=== PATIENT | female | born 1985 | race African-American/Black ===

== ENCOUNTER 2021-11-13 09:49 | Emergency (ER) | payer OTHER, SELFPAY ==
--- NOTE | ~2021-11-13 | XR_ITS ---
EXAMINATION: XR FOREARM, LEFT CLINICAL INFORMATION: Cut with carlos. COMPARISON: None TECHNIQUE: AP and lateral views of the left forearm were obtained. FINDINGS: There is no acute fracture or dislocation. The radius and ulna are intact. The soft tissues show mild swelling distally with subcutaneous fullness adjacent to the distal ulna. No radiopaque foreign body. XR/XR forearm LT 2V IMPRESSION: Soft tissue fullness distally in the forearm adjacent to the ulna is presumed to represent the patient's wound without radiopaque foreign body. No acute underlying osseous abnormality.
[2021-11-13 09:51] VITALS: PULSE 88; RESP 20; O2SAT 98; BMI 31.1
--- NOTE | 2021-11-13 10:04 | ED.WOUNDLAC ---
HPI - Wound/Laceration General Chief Complaint: Wound/Laceration Stated Complaint: laceration l arm loss a lot of blood Time Seen by Provider: 11/13/21 10:02 Source: patient Mode of arrival: ambulatory Limitations: no limitations History of Present Illness HPI narrative: 36 y/o female presents to the ER with a deep laceration to her left distal forearm that she accidentally sustained when she was putting new camping gear away and cut herself with a machete a couple of hours ago. The machete was new and never used. She reports significant amount of bleeding that was controlled with direct pressure. She has full function of the hand and digits but reports severe shooting pain into the pinky finger with any movement or palpation of the wound. She is right hand dominant. Unsure of last tdap. Onset (ago): hour(s) (2) Extremity Location: left: forearm (distal palmar side) Place: home Patient tetanus UTD: No Context: accidental Associated symptoms: pain Treatments prior to arrival: bandage Related Data Previous Rx's Medication Instructions Recorded hydrocodone 5 mg-acetaminophen 325 1 tab PO Q8H PRN #5 tab 11/13/21 mg tablet ibuprofen 600 mg tablet 600 mg PO Q8H PRN #6 tab 11/13/21 Allergies Allergy/AdvReac Type Severity Reaction Status Date / Time amoxicillin [AMOXICILLIN] Allergy Unknown SWELLING Unverified 04/02/20 19:41 latex [LATEX] Allergy Unknown SWELLING Unverified 04/02/20 19:41 Review of Systems Review of Systems: Constitutional: No Fever, No Chills Cardiovascular: No Chest Pain, No SOB Gastrointestinal: Nausea, No Vomiting Musculoskeletal: + joint pain, + Myalgias Skin: + Skin Lesions, No rash Neuro: No Weakness, No Numbness, No Dizziness Psych: + Anxiety/Panic Heme/Lymph: No Bruising, No Lymphadenopathy PMFSH Social History Social History Advance Directives: No Advance Directives Information Provided: No Patient : No Physical Exam Vital Signs: Vital Signs: Last Vital Signs Pulse 88 11/13/21 09:51 Resp 17 11/13/21 11:00 Pulse Ox 98 11/13/21 09:51 BMI result Body Mass Index 31.1 Appearance: Alert. Oriented X3. Crying in pain HEENT: normal inspection CVS: Normal heart rate and rhythm. Pulses normal. Respiratory: No respiratory distress. Skin: Skin warm and dry. Normal skin color. Normal skin turgor. No rashes. Extremities: palmar aspect of left distal forearm with a deep irregular shaped deep wound with exposed adipose tissue, deep structures intact, no visible tendon. significant tenderness throughout the entire area. left hand with full mobility and ROM of the wrist and digits but with weak hand grasp due to pain. 2+ radial pulse and <3 sec cap refill Neuro: Oriented X 3. No motor deficit. No sensory deficit. Course Course Course Narrative: 28-year-old female presenting to the ER with a deep laceration to her left distal forearm sustained a few hours ago with a machete. Wound is clean does not appear to be contaminated, knife was new. No active bleeding on arrival. Tdap given. X-rays ordered to rule out bony involvement. He does not seem to have tendon involvement. Will plan to irrigate the wound extensively and repair with absorbable sutures and simple interrupted sutures to approximate wound margins as able. Reevaluation(s) Reevaluation #1: X-rays negative for any bony involvement, there is some soft tissue swelling around the area of the wound which is to be expected. Patient tolerated suturing well, 12 external sutures and 1 internal of the verbal suture. Patient advised and counseled on wound care as well as signs and symptoms of infection. She is encourage follow-up with Dr. Hartman for follow-up given her ongoing complaint of shooting pain into the left pinky. Stable for discharge home with pain control and supportive care. Procedures Laceration Laceration 1: Site: upper extremity Side (If applicable): left Size (cm): 8 Description: flap and irregular Depth: involves muscle layer (Involved subcutaneous fat where) Local Anesthetic: lidocaine 1% and with epi Amount of anesthesia used (mL): 7 Pre-repair: wound explored, irrigated extensively and deep structures intact Skin layer closed with: nylon Size (cm): 4-0 Number of sutures: 12 Technique: simple, interrupted Subcutaneous layer closed with: chromic gut Size: 3-0 Number of sutures: 1 Technique: simple, interrupted Critical Care Time Critical Care Time Critical Care Time: No Discharge Plan Discharge Clinical Impression: Laceration Patient Disposition: Home, Self-Care Instructions: Laceration (DC) Additional Instructions: You will need your stitches out in 10 days. See you doctor for this or come back to the ER and we will remove them. Do not get wet for 24 hours, after that you can briefly wash with soap and water then pat dry. Use bacitracin 2x per day. Keep wound clean and covered. Use ice several times per day and elevate above the level of your heart. Take the prescribed medications as needed for pain. Do not submerge in water, no swimming. Recommend following up with your hand specialist given the shooting pain into your hand - name and number below. If you develop signs of infection including increased pain, swelling, redness or drainage of pus come back to the ER for further evaluation. Prescriptions: New ibuprofen 600 mg tablet 600 mg PO Q8H PRN (Reason: pain) Qty: 6 0RF hydrocodone-acetaminophen 5-325 mg tablet 1 tab PO Q8H PRN (Reason: severe pain (scale score 7-10)) Qty: 5 0RF Referrals: Ienz Hartman MD [Physician] - 1 week (left forearm lac w/ shooting pain into the hand) Stand Alone Forms: Work/School Release Interventions: ED Discharge Assessment Last Done: 11/13/21 11:43 Discharge Date/Time: 11/13/21 11:44
[2021-11-13] MEDS: oxyCODONE HCl Immed Release 5 MG TABLET PO (10:11)
[2021-11-13] MEDS: Diphth,Pertus(ACell),Tet Adult 0.5 ML SYRINGE IM (10:12)
[2021-11-13 11:00] VITALS: RESP 17
== END 2021-11-13 11:44 | disposition home or self-care (01) ==
PROVIDERS: Emergency Provider Emergency Medicine; PCP Physician Assistant Medical
DX: S51.812A Laceration without foreign body of left forearm, initial encounter (principal); W26.0XXA Contact with knife, initial encounter; Y93.9 Activity, unspecified; Y92.009 Unspecified place in unspecified non-institutional (private) residence as the place of occurrence of the external cause; Y99.9 Unspecified external cause status
CPT/HCPCS: 12034; 73090; 90471; 90715; 99284

== ENCOUNTER 2021-11-14 11:38 | Emergency (ER) | payer OTHER, SELFPAY ==
[2021-11-14 11:51] VITALS: BP 128/89; PULSE 70; RESP 18; TEMP 36.7; O2SAT 98; BMI 31.1
--- NOTE | 2021-11-14 12:31 | ED.WOUNDLAC ---
HPI - Wound/Laceration General Chief Complaint: Wound/Laceration Stated Complaint: wound pain Time Seen by Provider: 11/14/21 12:31 Source: patient Mode of arrival: ambulatory Limitations: no limitations History of Present Illness HPI narrative: 36 y/o female presenting back to the ER with ongoing left laceration and hand pain after she was seen yesterday for a laceration from a machete requiring 13 sutures to repair. She reports shooting pain from the laceration into the left hand, mostly into the pinky. Pain is worse with movement of the hand and wrist and with palpation. She reports taking all of the pain medications she was prescribed yesterday, they made her tired but really didnt help with the pain. She was not able to sleep last night because the pain kept her up. Onset (ago): day(s) (1) Extremity Location: left: forearm, wrist and hand Place: home Patient tetanus UTD: Yes Context: accidental Associated symptoms: pain Treatments prior to arrival: bandage and NSAIDS Related Data Previous Rx's Medication Instructions Recorded hydrocodone 5 mg-acetaminophen 325 1 tab PO Q8H PRN #5 tab 11/13/21 mg tablet ibuprofen 600 mg tablet 600 mg PO Q8H PRN #6 tab 11/13/21 acetaminophen 650 mg 650 mg PO Q8H PRN #30 tab 11/14/21 tablet,extended release (Tylenol Arthritis Pain) ibuprofen 600 mg tablet 600 mg PO Q8H PRN #30 tab 11/14/21 oxycodone 5 mg tablet 5 mg PO Q6H PRN #8 tab 11/14/21 Allergies Allergy/AdvReac Type Severity Reaction Status Date / Time amoxicillin [AMOXICILLIN] Allergy Unknown SWELLING Verified 11/14/21 11:54 latex [LATEX] Allergy Unknown SWELLING Verified 11/14/21 11:54 Review of Systems Review of Systems: Constitutional: No Fever, No Chills Cardiovascular: No Chest Pain, No SOB Respiratory: No Cough, No Sputum Gastrointestinal: No Nausea, No Vomiting Musculoskeletal: + joint pain, + Myalgias Skin: + Skin Lesions, No rash Neuro: + Weakness, No Numbness, No Dizziness Psych: + Anxiety/Panic, No Depression Heme/Lymph: No Bruising, No Lymphadenopathy PMFSH Past Medical History Medical History (Updated 11/14/21 @ 13:29 by YUSUF Jason) No known health problems Social History Social History Advance Directives: No Advance Directives Information Provided: No Patient : No Physical Exam Vital Signs: Vital Signs: Last Vital Signs Temp 98.1 F 11/14/21 11:51 Pulse 70 11/14/21 11:51 Resp 18 11/14/21 11:51 BP 128/89 11/14/21 11:51 Pulse Ox 98 11/14/21 11:51 BMI result Body Mass Index 31.1 Appearance: Alert. Oriented X3. No acute distress. HEENT: normal inspection CVS: Normal heart rate and rhythm. Pulses normal. Respiratory: No respiratory distress. Skin: Skin warm and dry. Normal skin color. Normal skin turgor. No rashes. Extremities: left dorsal forearm with a wound to the distal aspect, sutures intact. no erythema, warmth or drainage. tenderness of the wound itself. weak left hand grasp due to pain but full ROM of the wrist and all digits. weakness of adduction of digits 2-3, other adduction intact. cap refill <3 sec. 2+ radial pulse. No sensory deficits. tenderness of the proximal left forearm with pain reported in the hand, compartment is soft and compressible without any evidence of compartment syndrome or hematoma. Neuro: Oriented X 3. No motor deficit. No sensory deficit. Course Course Course Narrative: 36 y/o female presents to the ER for re-evaluation of left hand and laceration pain s/p machete injury yesterday morning. She reports shooting type pain into the pinky, consistent with possible nerve injury. She has normal ROM with some weakness of finger adduction (digits 2-3) and weakness with her grasp due to pain. NV intact on exam. Case was d/w Katiana HALL from Orthopedics - recommending close follow up in the office by Dr. Hartman on Monday. Plan d/w patient and she is stable for d/c with additional medications for pain and Hand follow up. Discharge Plan Discharge Clinical Impression: Left wrist pain Patient Disposition: Home, Self-Care Instructions: Wrist Injury (ED), Arm Pain (ED) Additional Instructions: Recommend following up with Dr. Hartman on Monday - name and number below. Call the office and tell them you were in the ER and you are supposed to be seen in the office on Monday. Continue to elevate and ice your arm. Take the prescribed medications as needed for pain. Prescriptions: New oxycodone 5 mg tablet 5 mg PO Q6H PRN (Reason: pain (scale score 7-10)) Qty: 8 0RF ibuprofen 600 mg tablet 600 mg PO Q8H PRN (Reason: pain) Qty: 30 0RF acetaminophen [Tylenol Arthritis Pain] 650 mg tablet extended release 650 mg PO Q8H PRN (Reason: pain) Qty: 30 0RF No Action ibuprofen 600 mg tablet 600 mg PO Q8H PRN (Reason: pain) Qty: 6 0RF hydrocodone-acetaminophen 5-325 mg tablet 1 tab PO Q8H PRN (Reason: severe pain (scale score 7-10)) Qty: 5 0RF
[2021-11-14] MEDS: Ketorolac Tromethamine 30 MG/ML VIAL IM (13:09)
[2021-11-14] MEDS: HYDROcodone Bit/Acetam 5/325 TABLET 1 TAB PO (13:10)
[2021-11-14] MEDS: Lidocaine 4 % Cream KIT 1 APPL TOPICAL (13:47)
[2021-11-14 13:55] VITALS: RESP 18
== END 2021-11-14 13:55 | disposition home or self-care (01) ==
PROVIDERS: Emergency Provider Emergency Medicine; PCP Physician Assistant Medical
DX: M25.532 Pain in left wrist (principal); S51.812D Laceration without foreign body of left forearm, subsequent encounter; W26.0XXD Contact with knife, subsequent encounter
CPT/HCPCS: 96372; 99284; J1885

== ENCOUNTER → 2021-11-16 12:38 | Outpatient (BNVA) | payer OTHER, SELFPAY | PROVIDERS: PCP Physician Assistant Medical; Visit Provider Orthopaedic Surgery | DX: S51.812A Laceration without foreign body of left forearm, initial encounter (principal) | CPT/HCPCS: 99202 ==

== ENCOUNTER 2021-11-24 08:29 | Emergency (ER) | payer OTHER, SELFPAY ==
[2021-11-24 08:34] VITALS: BP 138/102; PULSE 80; RESP 16; TEMP 36.4; O2SAT 98; BMI 31.1
--- NOTE | 2021-11-24 10:03 | ED.RECABL ---
HPI - Recheck/Abnormal Lab/Rx General Chief Complaint: Wound/Laceration Stated Complaint: wound check Time Seen by Provider: 11/24/21 08:59 Source: patient Mode of arrival: ambulatory Limitations: no limitations History of Present Illness HPI narrative: 36-year-old female presenting to the ED with complaints of worsening pain/redness/swelling/mild purulent discharge that she noticed since yesterday from her left wrist laceration where she was seen here on 11/13/2021 and had 11 stitches placed and given ibuprofen and [place] and she did not have any symptomatic relief to that therefore she came back for further evaluation treatment on 11/14/2021 due to severe pain was given oxycodone/ibuprofen and Tylenol. Then patient was seen on 11/16/2021 by Orthopedics and sent home after they reported she had a normal exam. She denies any fevers, chills, history of MRSA or any other symptoms complaints or concerns at this time. MD complaint: wound re-check and suture/staple removal Initial visit (ago): day(s) () Initial visit for: laceration Returns today for: staple/stitch removal and wound recheck Symptoms since prior visit: worsening pain, worsening swelling, worsening redness and worsening discharge Associated symptoms: none Related Data Previous Rx's Medication Instructions Recorded hydrocodone 5 mg-acetaminophen 325 1 tab PO Q8H PRN #5 tab 11/13/21 mg tablet ibuprofen 600 mg tablet 600 mg PO Q8H PRN #6 tab 11/13/21 acetaminophen 650 mg 650 mg PO Q8H PRN #30 tab 11/14/21 tablet,extended release (Tylenol Arthritis Pain) ibuprofen 600 mg tablet 600 mg PO Q8H PRN #30 tab 11/14/21 oxycodone 5 mg tablet 5 mg PO Q6H PRN #8 tab 11/14/21 acetaminophen 500 mg tablet 1,000 mg PO QID PRN #14 tab 11/24/21 (Tylenol Extra Strength) cephalexin 500 mg capsule 500 mg PO Q6H 10 Days #40 cap 11/24/21 doxycycline hyclate 100 mg tablet 100 mg PO BID 10 Days #20 tab 11/24/21 ibuprofen 800 mg tablet 800 mg PO Q8H PRN #14 tab 11/24/21 oxycodone 5 mg tablet 5 mg PO Q6H PRN #14 tab 11/24/21 Allergies Allergy/AdvReac Type Severity Reaction Status Date / Time amoxicillin [AMOXICILLIN] Allergy Unknown SWELLING Verified 11/16/21 13:50 latex [LATEX] Allergy Unknown SWELLING Verified 11/16/21 13:50 Review of Systems Review of Systems: Constitutional : No Fever, No Chills, Cardiovascular : No Chest Pain, No SOB Respiratory : No Dyspnea Gastrointestinal : No abdominal pain Musculoskeletal : No Joint Swelling Skin : positive skin wound/laceration with mild surrounding erythema and significant pain with mild purulent discharge noted, No Foreign bodies, No rash Neuro : No Weakness, No Numbness/tingling Psych : No SI/HI/thoughts of self injury Yes all other systems are reviewed and are negative [facility] Past Medical History Attestation statement: The following information was validated with the patient. Medical History No known health problems Social History Social History Patient Tobacco Use Status: Never used Tobacco Advance Directives: No Advance Directives Information Provided: No Current occupational status: unemployed Current occupation: rt hand Physical Exam Vital Signs: Vital Signs: Last Vital Signs Temp 97.5 F 11/24/21 08:34 Pulse 80 11/24/21 08:34 Resp 16 11/24/21 08:34 BP 138/102 H 11/24/21 08:34 Pulse Ox 98 11/24/21 08:34 BMI result Body Mass Index 31.1 vital signs have been reviewed as normal and appeared to be correct. Blood pressure 138/102 Heart rate normal. Respiration rate normal. Temperature normal. Oxygen saturation normal. Appearance: Alert. Oriented X3. No acute distress. Head: Normal external exam. Normocephalic. Atraumatic. Eyes: PERRLA. EOMI. Conjunctiva and sclera normal. Eyelids normal. ENT: Pharynx normal. Uvula midline. Moist mucous membranes. Neck: Normal inspection. Neck supple. FROM. CVS: Normal heart rate and rhythm. Respiratory: No respiratory distress. Painless inspiration. Skin: Skin warm and dry. Normal skin color. Normal skin turgor. To the left forearm patient has a healing lacerations chest wound with [address] with mild surrounding erythema/warm to touch/moderate tenderness palpation and mild purulent drainage. Otherwise no streaking noted. No additional rashes/lesions/lacerations noted. Extremities: No lower extremity edema. Extremities exhibit normal range of motion. Extremities nontender. Neuro: Oriented X 3. No motor deficit. No sensory deficit. Reflexes normal. Normal steady gait. No focal neuro deficits noted. Vascular: + radial pulses/+ 2 distal pedal pulses/+2 dorsalis pedis b/l. Normal cap refill. No cyanosis noted to upper extremity nails and lower extremity toes nails. Course Course Course Narrative: Patient now status post suture removal 11 sutures removed mild dehiscence with surrounding erythema although no additional purulent drainage once I removed all the stitches. Patient tolerated procedure well although was in severe pain therefore she was medicated with Toradol and oxycodone. Then I placed Steri-Strips due to dehiscence. No labs or imaging indicated at this time. Will DC home with symptomatic treatment and antibiotics for 10 days and instructions return in 2-3 days for wound check/cellulitis check and to follow-up with primary care provider. Patient understands agrees with this plan. MDM - Recheck/Abnormal Lab/Rx Medical Records Attestation: I reviewed the patient's medical records. Discharge Plan Discharge Clinical Impression: Infected laceration, Cellulitis of arm, Visit for suture removal Patient Disposition: Home, Self-Care Instructions: Cellulitis (ED) Prescriptions: New cephalexin 500 mg capsule 500 mg PO Q6H 10 Days Qty: 40 0RF doxycycline hyclate 100 mg tablet 100 mg PO BID 10 Days Qty: 20 0RF oxycodone 5 mg tablet 5 mg PO Q6H PRN (Reason: pain) Qty: 14 0RF ibuprofen 800 mg tablet 800 mg PO Q8H PRN (Reason: pain) Qty: 14 0RF acetaminophen [Tylenol Extra Strength] 500 mg tablet 1,000 mg PO QID PRN (Reason: fever or pain) Qty: 14 0RF No Action ibuprofen 600 mg tablet 600 mg PO Q8H PRN (Reason: pain) Qty: 6 0RF hydrocodone-acetaminophen 5-325 mg tablet 1 tab PO Q8H PRN (Reason: severe pain (scale score 7-10)) Qty: 5 0RF oxycodone 5 mg tablet 5 mg PO Q6H PRN (Reason: pain (scale score 7-10)) Qty: 8 0RF ibuprofen 600 mg tablet 600 mg PO Q8H PRN (Reason: pain) Qty: 30 0RF acetaminophen [Tylenol Arthritis Pain] 650 mg tablet extended release 650 mg PO Q8H PRN (Reason: pain) Qty: 30 0RF Referrals: Yayo Macedo PA [Primary Care Provider] - 2 days Jaclyn Ceballos PA [Emergency Midlevel Provider] - 2 days (For wound check/cellulitis check) Stand Alone Forms: Work/School Release Interventions: ED Discharge Assessment Last Done: 11/24/21 10:19 Discharge Date/Time: 11/24/21 10:19
[2021-11-24] MEDS: oxyCODONE HCl Immed Release 5 MG TABLET PO (10:10)
[2021-11-24] MEDS: Ketorolac Tromethamine 60 MG/2 ML VIAL IM (10:10)
== END 2021-11-24 10:19 | disposition home or self-care (01) ==
PROVIDERS: Emergency Provider Emergency Medicine; PCP Physician Assistant Medical
DX: L03.114 Cellulitis of left upper limb (principal); M25.532 Pain in left wrist; Z79.899 Other long term (current) drug therapy; Z48.02 Encounter for removal of sutures
CPT/HCPCS: 96372; 99284; J1885

== ENCOUNTER 2022-03-03 15:57 | Emergency (ER) | payer OTHER, SELFPAY ==
[2022-03-03 16:14] VITALS: BP 142/99; PULSE 99; RESP 18; TEMP 36.8; O2SAT 97; BMI 30.7
== END 2022-03-03 17:57 | disposition left against medical advice (07) ==
PROVIDERS: Emergency Provider Emergency Medicine; PCP Physician Assistant Medical
DX: S69.91XA Unspecified injury of right wrist, hand and finger(s), initial encounter (principal); W23.0XXA Caught, crushed, jammed, or pinched between moving objects, initial encounter; Y93.9 Activity, unspecified; Y92.9 Unspecified place or not applicable; Y99.9 Unspecified external cause status
CPT/HCPCS: 99281

== ENCOUNTER 2022-03-06 09:52 | Emergency (ER) | payer OTHER, SELFPAY ==
[2022-03-06 10:15] VITALS: BP 148/93; PULSE 76; RESP 18; TEMP 36.6; O2SAT 99
[2022-03-06 11:41] VITALS: BP 141/101; PULSE 69; RESP 16; O2SAT 99; BMI 29.9
--- NOTE | 2022-03-06 13:38 | ED.GENADULT ---
HPI - General Adult General Chief complaint: General Medical Stated complaint: Right thumb pain Time Seen by Provider: 03/06/22 13:29 Source: patient Mode of arrival: ambulatory Limitations: no limitations History of Present Illness HPI narrative: 34-year-old female presents to the ED for right thumb nail is hanging off for the past 3 days. Patient states she hit her nail on an object and now it is about to come off. Patient has has fake nail on top her real nail. Related Data Previous Rx's Medication Instructions Recorded hydrocodone 5 mg-acetaminophen 325 1 tab PO Q8H PRN severe pain 11/13/21 mg tablet (scale score 7-10) #5 tabs ibuprofen 600 mg tablet 600 mg PO Q8H PRN pain #6 tabs 11/13/21 acetaminophen 650 mg 650 mg PO Q8H PRN pain #30 tabs 11/14/21 tablet,extended release (Tylenol Arthritis Pain) ibuprofen 600 mg tablet 600 mg PO Q8H PRN pain #30 tabs 11/14/21 oxycodone 5 mg tablet 5 mg PO Q6H PRN pain (scale score 11/14/21 7-10) #8 tabs acetaminophen 500 mg tablet 1,000 mg PO QID PRN fever or pain 11/24/21 (Tylenol Extra Strength) #14 tabs cephalexin 500 mg capsule 500 mg PO Q6H 10 days #40 caps 11/24/21 doxycycline hyclate 100 mg tablet 100 mg PO BID 10 days #20 tabs 11/24/21 ibuprofen 800 mg tablet 800 mg PO Q8H PRN pain #14 tabs 11/24/21 oxycodone 5 mg tablet 5 mg PO Q6H PRN pain #14 tabs 11/24/21 naproxen 500 mg tablet 500 mg PO BID PRN pain 10 days #20 03/06/22 tabs Allergies Allergy/AdvReac Type Severity Reaction Status Date / Time amoxicillin [AMOXICILLIN] Allergy Unknown SWELLING Verified 03/03/22 16:14 latex [LATEX] Allergy Unknown SWELLING Verified 03/03/22 16:14 Review of Systems Review of Systems: right thumb nail coming off. Yes all other systems are reviewed and are negative PMFSH Past Medical History Medical History No known health problems Social History Social History Patient Tobacco Use Status: Never used Tobacco Advance Directives: No Advance Directives Information Provided: No Current occupational status: unemployed Current occupation: rt hand Physical Exam ED Vital Signs: Vital Signs - 24 hr 03/06/22 10:15 03/06/22 11:41 03/06/22 15:30 Temperature 97.8 F Pulse Rate 76 69 69 Respiratory Rate 18 16 18 Blood Pressure 148/93 H 141/101 H 149/97 H Pulse Oximetry 99 99 97 Oxygen Delivery Method Room Air Room Air BMI result Body Mass Index 29.9 Const General: cooperative, healthy appearing, comfortable, no acute distress, well developed, alert, awake and Physically active Orientation/consciousness: oriented to person, oriented to place, oriented to time and patient oriented x3 HENMT Head: Yes normal to inspection, Yes No palpable skull fracture present, Yes normocephalic, Yes atraumatic and No abrasion Eyes General: appearance normal, both eyes and all related structures Neck Neck: Yes normal visual inspection, Yes full ROM, Yes no lymphadenopathy, Yes no meningeal signs, Yes trachea midline, Yes supple, No anterior neck swelling and No tender Chest Chest palpation & inspection: normal inspection of the chest and normal palpation of entire chest wall Resp Effort & Inspection: normal respiratory effort and able to speak in complete sentences Auscultation: clear to auscultation bilaterally Cardio Jugular venous distension: no JVD Heart sounds: S1 normal heart sound present and S2 normal heart sound present GI Inspection: Yes normal to inspection and No abdominal wall ecchymosis Palpation (GI): Soft to palpation, not firm, nontender, no guarding and not rigid General: No CVA tenderness and Yes no CVA tenderness Back/Spine/Pelvis Back: no CVA tenderness, No CVA tenderness and No back tenderness Skin General skin exam: no rashes or lesions noted and elasticity normal Neuro General: oriented to person, oriented to place, oriented to time, patient oriented x3, gait normal, tone normal, Normal light touch and pain sensation, no meningeal signs, no focal motor deficits and CN's II-XI intact bilaterally Extrem General: Yes normal to inspection and Yes full ROM Hand/finger images: 1. Nail standing up and hanging out. No tenderness palpation of thumb and complete range of motion of thumb. Motor/neuro/macro exam of hand or fingers intact. Psych Appearance: grossly normal, well kempt and not disheveled Course Course Course Narrative: Will pull out the nail. Reevaluation(s) Reevaluation #1: Patient cannot tolerate procedure for nail to be removed. Patient given 6 mL of 1% lidocaine which did not help. No more 1% lidocaine the ED so 2% lidocaine 4 mL was given. Patient still had sensation and pain. Patient given Ativan and oxycodone and still cannot tolerate the procedure. Procedure was not done. Instead Dermabond was placed and nail bed pushed and placed back down. Patient inform nail will fall off on its own. Time: 16:00 Reevaluation #2: Dermabond was used and real nail was glued back to the epidermis of nail. Time: 16:27 Medical Decision Making MDM Narrative Medical decision making narrative: Partial nail avulsion Discharge Plan Discharge Clinical Impression: Nail avulsion, finger Patient Disposition: Home, Self-Care Instructions: Nail Avulsion (ED) Additional Instructions: Return to the ED immediately for any swelling, redness, pus discharge, foul odor, bluish black discoloration, inability to move, numbness/tingling, or any other concerning symptoms. Keep finger dry the first 48 hours Prescriptions: New naproxen 500 mg tablet 500 mg PO BID PRN (Reason: pain) 10 Days Qty: 20 0RF No Action ibuprofen 600 mg tablet 600 mg PO Q8H PRN (Reason: pain) Qty: 6 0RF hydrocodone-acetaminophen 5-325 mg tablet 1 tab PO Q8H PRN (Reason: severe pain (scale score 7-10)) Qty: 5 0RF cephalexin 500 mg capsule 500 mg PO Q6H 10 Days Qty: 40 0RF doxycycline hyclate 100 mg tablet 100 mg PO BID 10 Days Qty: 20 0RF oxycodone 5 mg tablet 5 mg PO Q6H PRN (Reason: pain) Qty: 14 0RF ibuprofen 800 mg tablet 800 mg PO Q8H PRN (Reason: pain) Qty: 14 0RF acetaminophen [Tylenol Extra Strength] 500 mg tablet 1,000 mg PO QID PRN (Reason: fever or pain) Qty: 14 0RF oxycodone 5 mg tablet 5 mg PO Q6H PRN (Reason: pain (scale score 7-10)) Qty: 8 0RF ibuprofen 600 mg tablet 600 mg PO Q8H PRN (Reason: pain) Qty: 30 0RF acetaminophen [Tylenol Arthritis Pain] 650 mg tablet extended release 650 mg PO Q8H PRN (Reason: pain) Qty: 30 0RF Referrals: Inez Hartman MD [Physician] - (nail avulsion) Stand Alone Forms: Work/School Release Interventions: ED Discharge Assessment Last Done: 03/06/22 16:43 Discharge Date/Time: 03/06/22 16:43 Print Language: Icelandic
[2022-03-06] MEDS: Lidocaine HCl 1 % MPF 2 ML VIAL INFILTRATI ×4 (14:23)
[2022-03-06] MEDS: Lidocaine HCl 2 % MPF 5 ML VIAL 2 ML INFILTRATI ×2 (15:27)
[2022-03-06 15:30] VITALS: BP 149/97; PULSE 69; RESP 18; O2SAT 97
[2022-03-06] MEDS: LORazepam 0.5 MG TABLET PO (15:34)
[2022-03-06] MEDS: oxyCODONE HCl Immed Release 5 MG TABLET PO (15:34)
== END 2022-03-06 16:43 | disposition home or self-care (01) ==
PROVIDERS: Emergency Provider Emergency Medicine; PCP Physician Assistant Medical
DX: S61.101A Unspecified open wound of right thumb with damage to nail, initial encounter (principal); M79.644 Pain in right finger(s); Y29.XXXA Contact with blunt object, undetermined intent, initial encounter; Y93.9 Activity, unspecified; Y92.9 Unspecified place or not applicable; Y99.9 Unspecified external cause status; Z79.899 Other long term (current) drug therapy
CPT/HCPCS: 11760; 99283

== ENCOUNTER 2022-07-13 16:39 | Emergency (ER) | payer OTHER, SELFPAY ==
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
[2022-07-13 16:57] VITALS: BMI 27.4
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
[2022-07-13 17:26] LABS: MANUAL DIFF FLAG NO
[2022-07-13 17:30] LABS: Basophils Absolute Auto 0.1 X10*3/uL (0.0-0.2); Basophils Percent Auto 0.8 % (0-2); Eosinophils Absolute Auto 0.2 X10*3/uL (0.0-0.4); Hematocrit 39.7 % (37.0-47.0); Hemoglobin 13.5 g/dl (12.0-16.0); Imm Gran Abs Auto 0.01 X10*3/uL (0.00-0.03); Imm Gran Pct Auto 0.2 % (0.0-0.4); Lymphocytes Percent Auto 30.5 % (20-40); Mean Corpuscular Hemoglobin 32.1 pg (27.0-33.0); Mean Corpuscular Volume 94.3 fL (80.0-98.0); Mean Platelet Volume 10.2 fL (9.4-12.3); Monocytes Absolute Auto 0.6 X10*3/uL (0.1-1.2); Monocytes Percent Auto 8.7 % (2-11); Neutrophils Absolute Auto 3.7 x10*3/uL (2.0-8.3); Neutrophils Percent Auto 56.8 % (45-73); Platelet Count 229 X10*3/uL (160-400); Red Blood Count 4.21 X10*6/uL (4.20-5.50); Red Cell Distribution Width 12.6 % (11.0-16.0); White Blood Count 6.4 X10*3/uL (4.8-10.8)
[2022-07-13 17:42] LABS: Alanine Aminotransferase 15 U/L (0-31); Albumin Level 4.3 g/dL (3.5-5.0); Alkaline Phosphatase 69 U/L (39-117); Anion Gap 11 (12-20); Aspartate Amino Transferase 13 U/L (5-31); Bilirubin Total 0.3 mg/dL (0.0-1.0); Blood Urea Nitrogen 10 mg/dL (9-16); Calcium 8.8 mg/dL (8.4-10.2); Carbon Dioxide 24 mmol/L (22-29); Chloride 109 mmol/L (96-108); Creatinine Clr Calc Pharmacy 115.3; Estimated Glomerular Filt Rate > 60; Glucose Random 94 mg/dL (60-115); Magnesium 2.1 mg/dL (1.6-2.6); Potassium 4.2 mmol/L (3.3-5.1); Sodium 140 mmol/L (135-145); Total Protein 6.9 g/dL (6.5-8.0)
[2022-07-13 17:44] LABS: COVID-19 Test Negative (Negative); IDNOW Serial# 16C4AD1C
[2022-07-13] MEDS: Acetaminophen 325 MG TABLET 975 MG PO (18:30)
[2022-07-13] MEDS: iohexoL 350 MG/ML 100 ML INFUS..BTL IV (19:01)
[2022-07-13 19:08] LABS: HCG Quantitative < 2 mIU/mL
[2022-07-13 19:43] VITALS: BP 127/91; PULSE 62; RESP 18; O2SAT 98
[2022-07-13] MEDS: Ketorolac Tromethamine 15 MG/ML VIAL 30 MG IVPUSH (20:50)
== END 2022-07-13 20:58 | disposition home or self-care (01) ==
PROVIDERS: Physician Assistant; Emergency Provider Emergency Medicine
DX: S06.0X0A Concussion without loss of consciousness, initial encounter (principal); S13.4XXA Sprain of ligaments of cervical spine, initial encounter; R07.89 Other chest pain; M54.6 Pain in thoracic spine; R51.9 Headache, unspecified; M54.2 Cervicalgia; V43.62XA Car passenger injured in collision with other type car in traffic accident, initial encounter; Y93.9 Activity, unspecified; Y92.410 Unspecified street and highway as the place of occurrence of the external cause; Y99.9 Unspecified external cause status; Z20.822 Contact with and (suspected) exposure to COVID-19; Z79.899 Other long term (current) drug therapy
CPT/HCPCS: 70450; 71260; 72125; 74177; 80053; 83735; 84702; 85025; 87635; 96374; 99283; 99284; J1885; Q9967

== ENCOUNTER 2023-07-13 07:54 | Emergency (ER) | payer OTHER, SELFPAY ==
--- NOTE | ~2023-07-13 | XR_ITS ---
EXAMINATION: XR CHEST CLINICAL INFORMATION: Cough. Covid positive COMPARISON: 07/13/2022 TECHNIQUE: Frontal view of the chest was obtained. FINDINGS: Lungs grossly clear. Heart and pulmonary vessels are normal. No congestive change. XR/XR chest 1V IMPRESSION: No active disease.
[2023-07-13 07:58] VITALS: BP 140/99; PULSE 101; RESP 20; TEMP 36.4; O2SAT 98; BMI 30.3
[2023-07-13 08:28] LABS: COVID-19 Test Positive (Negative); IDNOW Serial# 9DB6401D
[2023-07-13 08:29] LABS: IDNOW Serial# 58CA691E; Influenza A Negative (Negative); Influenza B2 Negative (Negative)
--- NOTE | 2023-07-13 09:32 | ED.URI ---
HPI - URI/Sore Throat General Chief Complaint: Upper Respiratory Symptoms Stated Complaint: SOB Time Seen by Provider: 07/13/23 09:06 Source: patient, RN notes reviewed and old records reviewed Mode of arrival: ambulatory History of Present Illness HPI Narrative: 37-year-old female with a past medical history of asthma presenting to the ED complaining of productive cough, congestion, SOB x 3 days. Denies chest pain, fever, recent travel, sick contacts, sore throat/ear pain MD elicited complaint: cough, rhinorrhea and nasal congestion Related Data Previous Rx's Medication Instructions Recorded hydrocodone 5 mg-acetaminophen 325 1 tab PO Q8H PRN severe pain 11/13/21 mg tablet (scale score 7-10) #5 tabs ibuprofen 600 mg tablet 600 mg PO Q8H PRN pain #6 tabs 11/13/21 acetaminophen 650 mg 650 mg PO Q8H PRN pain #30 tabs 11/14/21 tablet,extended release (Tylenol Arthritis Pain) ibuprofen 600 mg tablet 600 mg PO Q8H PRN pain #30 tabs 11/14/21 oxycodone 5 mg tablet 5 mg PO Q6H PRN pain (scale score 11/14/21 7-10) #8 tabs acetaminophen 500 mg tablet 1,000 mg (2 x 500 mg) PO QID PRN 11/24/21 (Tylenol Extra Strength) fever or pain #14 tabs cephalexin 500 mg capsule 500 mg PO Q6H 10 days #40 caps 11/24/21 doxycycline hyclate 100 mg tablet 100 mg PO BID 10 days #20 tabs 11/24/21 ibuprofen 800 mg tablet 800 mg PO Q8H PRN pain #14 tabs 11/24/21 oxycodone 5 mg tablet 5 mg PO Q6H PRN pain #14 tabs 11/24/21 naproxen 500 mg tablet 500 mg PO BID PRN pain 10 days #20 03/06/22 tabs cyclobenzaprine 10 mg tablet 10 mg PO BEDTIME PRN muscle spasm 07/13/22 #7 tabs lidocaine 5 % topical patch 1 patch topical DAILY PRN pain #15 07/13/22 ea albuterol sulfate 90 mcg/actuation 2 puff inhalation Q4-6H PRN 07/13/23 aerosol inhaler shortness of breath or wheezing #6.7 grams Allergies Allergy/AdvReac Type Severity Reaction Status Date / Time amoxicillin [AMOXICILLIN] Allergy Unknown SWELLING Verified 03/03/22 16:14 latex [LATEX] Allergy Unknown SWELLING Verified 03/03/22 16:14 Review of Systems Review of Systems: Constitutional: No Fever, No Chills ENT/Mouth: No Ear Pain, +Nasal Congestion, No Sinus Pain, No Hoarseness, No sore throat, + Rhinorrhea, No Swallowing Difficulty Cardiovascular: No Chest Pain, +SOB Respiratory: +Cough, + Sputum, No Wheezing Gastrointestinal: No Nausea, No Vomiting, No Diarrhea, No Constipation, No Abdominal pain Musculoskeletal: No joint pain, No Myalgias, No Joint Swelling Skin: No Skin Lesions, No rash Neuro: No Weakness Yes all other systems are reviewed and are negative Constitutional: Constitutional: Reports as per [facility] Past Medical History Attestation statement: The following information was validated with the patient. Source: old records reviewed Medical History No known health problems Social History Social History Patient Tobacco Use Status: Never used Tobacco Smoked in Last 30 Days: No Use of substances other than those prescribed or required for medical reasons: No Advance Directives: No Advance Directives Information Provided: Yes Patient : No Current occupational status: unemployed Current occupation: rt hand Physical Exam Vital Signs: Vital Signs: Last Vital Signs Temp 97.6 F 07/13/23 07:58 Pulse 101 H 07/13/23 07:58 Resp 20 07/13/23 07:58 BP 140/99 H 07/13/23 07:58 Pulse Ox 98 07/13/23 07:58 O2 Del Method Room Air 07/13/23 07:58 BMI result Body Mass Index 30.3 Const: General: cooperative, healthy appearing and no acute distress Orientation/consciousness: patient oriented x3 Limitations: no limitations HEENT: Head: Yes normal to inspection and Yes atraumatic Ears: hearing grossly normal bilaterally General nose exam: Normal external nose present Face and sinus: Yes normal facial exam Eyes: General: appearance normal, both eyes and all related structures EOM: EOMs intact bilaterally Neck: Neck: Yes normal visual inspection and Yes no meningeal signs Resp: Effort & Inspection: normal respiratory effort and no respiratory distress Auscultation: clear to auscultation bilaterally, no crackles and no wheezes Cardio: Rate: regular rate Heart sounds: S1 normal heart sound present and S2 normal heart sound present Skin: Rashes: no rashes Wounds: no wounds Neuro: General: patient oriented x3, tone normal and no meningeal signs Cranial nerves: Yes CN's II-XII intact bilaterally Gait exam (Neuro): Normal gait present Extrem: General: Yes normal to inspection Course Course Course Narrative: COVID-19 positive Results discussed with patient including worrisome signs and symptoms and strict return precautions, and when to return to the emergency department. They verbalized understanding and feel safe for discharge at this time. Medical Decision Making Medical Decision Making [facility] Narrative: 37-year-old female with a past medical history of asthma presenting to the ED complaining of productive cough, congestion, SOB x 3 days. On exam mildly tachycardic likely from persistent cough on exam, lungs CTA, exam otherwise benign, nontoxic appearing. Concern for viral illness. Rule out pneumonia vs bronchitis. Low suspicion for ACS/PE or DVT Plan: Viral testing, CXR Please refer to course for remaining clinical decision making, interpretation of labs/imaging results, and discussions with consultants and/or family members. Differential Diagnosis Differential Diagnoses: The differential diagnosis associated with the presentation includes As above Lab Data [facility] Lab Attestation statement: I reviewed the patient's lab results. Labs: Lab Results 07/13/23 Range/Units 08:03 COVID-19 (JESSICA) Positive A (Negative) COVID-19 Clin Com See Note Influenza Type A (RIMA) Negative (Negative) Influenza Type B (RIMA) Negative (Negative) Influenza A & B Note See Note Independent Interpretation I performed an independent interpretation of an: Plain X-Ray Radiology Impression Discussion of test interpretation with radiology: I have reviewed the radiologist's reading. External Record Review External record reviewed: Inpatient record, Office record, Outpatient record, Prior outpatient labs, Prior outpatient radiology, Primary care record and Outside ED record Tests considered The following testing was considered but not selected: As above Prescription Management I considered prescription management with: Pain Medication, Antiviral and Antibiotic Discharge Plan Discharge Clinical Impression: COVID-19 Patient Disposition: Home, Self-Care Instructions: COVID-19 (Coronavirus Disease 2019) (ED) Additional Instructions: YOU HAVE COVID-19 At this time you will be okay for discharge. Please self isolate for 5 days. Do not expose yourself to others. You may not go to work or school. Please continue to follow cold instructions and wash your hands frequently. You may take Tylenol / Motrin as directed on the bottle for pain or fever. If you have constant or persistent shortness of breath, fever unresolved with medications, chest pain, or your unable to eat or drink please return to the ED CDC Guidelines for home isolation: - Stay away from others - WEAR A MASK if you are sick AND STAY HOME - Cover your mouth and nose with a tissue when you cough or sneeze. Dispose of tissues in a lined trash can and wash your hands immediately with soap and water for at least 20 seconds. If soap and water are not available, clean hands with alcohol-based hand materials engineer that contains at least 60% alcohol. - Clean your hands often with soap and water for at least 20 seconds - Avoid touching your eyes, nose and mouth with unwashed hands - Do not share dishes, drinking glasses, cups, eating utensils, towels, or bedding with other people in your home. After using these items, wash them thoroughly with soap and water or put in the field case manager. - Clean high-touch surfaces in your isolation area ( sick room and bathroom) every day; let a caregiver clean and disinfect high-touch surfaces in other areas of the home. Clean the area or item with soap and water or another detergent if it is dirty. Then, use a household disinfectant. - Limit contact with pets and animals: If you must care for a pet, wash your hands before and after interacting with them) Prescriptions: New albuterol sulfate 90 mcg/actuation HFA aerosol inhaler 2 puff inhalation Q4-6H PRN (Reason: shortness of breath or wheezing) Qty: 6.7 0RF No Action ibuprofen 600 mg tablet 600 mg PO Q8H PRN (Reason: pain) Qty: 6 0RF hydrocodone-acetaminophen 5-325 mg tablet 1 tab PO Q8H PRN (Reason: severe pain (scale score 7-10)) Qty: 5 0RF cephalexin 500 mg capsule 500 mg PO Q6H 10 Days Qty: 40 0RF doxycycline hyclate 100 mg tablet 100 mg PO BID 10 Days Qty: 20 0RF oxycodone 5 mg tablet 5 mg PO Q6H PRN (Reason: pain) Qty: 14 0RF ibuprofen 800 mg tablet 800 mg PO Q8H PRN (Reason: pain) Qty: 14 0RF acetaminophen [Tylenol Extra Strength] 500 mg tablet 1,000 mg PO QID PRN (Reason: fever or pain) Qty: 14 0RF naproxen 500 mg tablet 500 mg PO BID PRN (Reason: pain) 10 Days Qty: 20 0RF cyclobenzaprine 10 mg tablet 10 mg PO BEDTIME PRN (Reason: muscle spasm) Qty: 7 0RF lidocaine 5 % adhesive patch,medicated 1 patch topical DAILY PRN (Reason: pain) Qty: 15 0RF Rx Instructions: leave on most painful area for up to 12 hrs oxycodone 5 mg tablet 5 mg PO Q6H PRN (Reason: pain (scale score 7-10)) Qty: 8 0RF ibuprofen 600 mg tablet 600 mg PO Q8H PRN (Reason: pain) Qty: 30 0RF acetaminophen [Tylenol Arthritis Pain] 650 mg tablet extended release 650 mg PO Q8H PRN (Reason: pain) Qty: 30 0RF Referrals: Physician,Unknown J [Primary Care Provider] - Stand Alone Forms: Work/School Release
--- NOTE | 2023-07-13 10:12 | PC.NURSE ---
pt awaiting xray results at this time.
== END 2023-07-13 10:58 | disposition home or self-care (01) ==
PROVIDERS: Emergency Provider Emergency Medicine
DX: U07.1 COVID-19 (principal); R06.02 Shortness of breath; R05.9 Cough, unspecified; R09.81 Nasal congestion; Z79.899 Other long term (current) drug therapy
CPT/HCPCS: 71045; 87502; 87635; 99283; 99284

== ENCOUNTER 2023-10-15 10:07 | Emergency (ER) | payer OTHER, SELFPAY ==
--- NOTE | ~2023-10-15 | XR_ITS ---
EXAMINATION: CHEST 2 VIEWS CLINICAL INFORMATION: cough pneumonia?. COMPARISON: 07/05/2023. TECHNIQUE: PA and lateral views of the chest obtained. FINDINGS: The lungs are well expanded. No focal infiltrate, effusion, edema, or pneumothorax. Cardiac and mediastinal silhouettes are within normal limits for technique. No acute bony abnormality seen XR/XR chest 2V IMPRESSION: No evidence of acute disease
--- NOTE | ~2023-10-15 | US_ITS ---
EXAMINATION: US VENOUS ULTRASOUND WITH DOPPLER LOWER EXTREMITY, RIGHT CLINICAL INFORMATION: Mid calf pain COMPARISON: None available. TECHNIQUE: Ultrasound of the deep veins is performed from the hip to the calf with compression sonography and color and pulse Doppler assessment. Spectral analysis with color-flow imaging is performed. FINDINGS: There is normal venous compression and respiratory variation and augmented flow. The visualized common femoral vein, superficial femoral vein, profunda femoral vein, popliteal vein, and the trifurcation region shows no evidence of deep venous thrombosis. There is no significant popliteal fossa cyst. If the patient's symptoms persist, followup ultrasound in 5 days 7 days might be of value to exclude proximal propagation from a non-visualized calf vein. US/US venous duplex LE RT IMPRESSION: No DVT demonstrated in the right lower extremity.
[2023-10-15 10:10] VITALS: BP 136/91; PULSE 89; RESP 18; TEMP 36.8; O2SAT 98; BMI 33.7
[2023-10-15 11:05] LABS: Influenza A PCR NEGATIVE (Negative); Influenza B PCR NEGATIVE (Negative); Resp Syncy Virus RNA Qual PCR NEGATIVE (Negative); SARS COV2 PCR INHOUSE NEGATIVE (Negative)
--- NOTE | 2023-10-15 11:23 | ECG_ITS ---
Test Reason : PLUERISY Blood Pressure : / mmHG Vent. Rate : 069 BPM Atrial Rate : 069 BPM P-R Int : 124 ms QRS Dur : 094 ms QT Int : 400 ms P-R-T Axes : -05 020 023 degrees QTc Int : 428 ms Normal sinus rhythm Normal ECG No previous ECGs available Referred By: Clay Foss Electronically Signed By:RIGOBERTO AIKEN MD
--- NOTE | 2023-10-15 11:42 | ED.GENADULT ---
HPI - General Adult General Chief complaint: Upper Respiratory Symptoms Stated complaint: Diff breathing, pain near rib cage Time Seen by Provider: 10/15/23 10:49 Source: patient Mode of arrival: ambulatory Limitations: no limitations History of Present Illness HPI narrative: 38-year-old female history of asthma presents to ED for coughing, loss of voice, and right-sided chest pain with pleurisy for the past couple of days. Patient states also wheezing. Patient has no albuterol pump at home. Related Data Previous Rx's Medication Instructions Recorded hydrocodone 5 mg-acetaminophen 325 1 tab PO Q8H PRN severe pain 11/13/21 mg tablet (scale score 7-10) #5 tabs ibuprofen 600 mg tablet 600 mg PO Q8H PRN pain #6 tabs 11/13/21 acetaminophen 650 mg 650 mg PO Q8H PRN pain #30 tabs 11/14/21 tablet,extended release (Tylenol Arthritis Pain) ibuprofen 600 mg tablet 600 mg PO Q8H PRN pain #30 tabs 11/14/21 oxycodone 5 mg tablet 5 mg PO Q6H PRN pain (scale score 11/14/21 7-10) #8 tabs acetaminophen 500 mg tablet 1,000 mg (2 x 500 mg) PO QID PRN 11/24/21 (Tylenol Extra Strength) fever or pain #14 tabs cephalexin 500 mg capsule 500 mg PO Q6H 10 days #40 caps 11/24/21 doxycycline hyclate 100 mg tablet 100 mg PO BID 10 days #20 tabs 11/24/21 ibuprofen 800 mg tablet 800 mg PO Q8H PRN pain #14 tabs 11/24/21 oxycodone 5 mg tablet 5 mg PO Q6H PRN pain #14 tabs 11/24/21 naproxen 500 mg tablet 500 mg PO BID PRN pain 10 days #20 03/06/22 tabs cyclobenzaprine 10 mg tablet 10 mg PO BEDTIME PRN muscle spasm 07/13/22 #7 tabs lidocaine 5 % topical patch 1 patch topical DAILY PRN pain #15 07/13/22 ea albuterol sulfate 90 mcg/actuation 2 puff inhalation Q4-6H PRN 07/13/23 aerosol inhaler shortness of breath or wheezing #6.7 grams albuterol sulfate 2.5 mg/3 mL 2.5 mg (3 mL) inhalation Q4-6H PRN 10/15/23 (0.083 %) solution for nebulization shortness of breath or wheezing #75 mL albuterol sulfate 90 mcg/actuation 2 puff inhalation Q4-6H PRN 10/15/23 aerosol inhaler shortness of breath or wheezing #8.5 grams azithromycin 250 mg tablet See Rx Instructions PO .COMPLEX #6 10/15/23 tabs benzonatate 200 mg capsule 200 mg PO TID 5 days #15 caps 10/15/23 prednisone 20 mg tablet 40 mg (2 x 20 mg) PO DAILY 5 days 10/15/23 #10 tabs Allergies Allergy/AdvReac Type Severity Reaction Status Date / Time amoxicillin [AMOXICILLIN] Allergy Unknown SWELLING Verified 10/15/23 10:10 latex [LATEX] Allergy Unknown SWELLING Verified 10/15/23 10:10 Review of Systems Review of Systems: Coughing, right-sided chest pain, pleurisy, loss of voice, wheezing Yes all other systems are reviewed and are negative [facility] Past Medical History Medical History No known health problems Social History Social History Patient Tobacco Use Status: Never used Tobacco Advance Directives: No Advance Directives Information Provided: Yes Current occupational status: unemployed Current occupation: rt hand Physical Exam ED Vital Signs: Vital Signs - 24 hr 10/15/23 10:10 10/15/23 12:16 10/15/23 12:57 Temperature 98.3 F 97.9 F Pulse Rate 89 70 80 Respiratory Rate 18 16 20 Blood Pressure 136/91 H 136/93 H Pulse Oximetry 98 100 Oxygen Delivery Method Room Air Room Air BMI result Body Mass Index 33.7 Const General: cooperative, healthy appearing, comfortable, no acute distress, well developed, alert, awake and Physically active Orientation/consciousness: oriented to person, oriented to place, oriented to time and patient oriented x3 HENMT Head: Yes normal to inspection, Yes No palpable skull fracture present, Yes normocephalic, Yes atraumatic and No abrasion Ears: hearing grossly normal bilaterally, external ears normal, TM's normal bilaterally, TM normal on the right, TM normal on the left, EAC's normal, mastoids normal and no periauricular adenopathy Throat: Yes posterior oropharynx normal, Yes tonsils normal and Yes uvula midline Eyes General: appearance normal, both eyes and all related structures Neck Neck: Yes normal visual inspection, Yes full ROM, Yes no lymphadenopathy, Yes no meningeal signs, Yes trachea midline, Yes supple, No anterior neck swelling and No tender Chest Chest palpation & inspection: normal inspection of the chest and normal palpation of entire chest wall Resp Effort & Inspection: normal respiratory effort and able to speak in complete sentences Auscultation: wheezes expiratory wheezes Cardio Jugular venous distension: no JVD Heart sounds: S1 normal heart sound present and S2 normal heart sound present GI Inspection: Yes normal to inspection Palpation (GI): Soft to palpation, not firm, nontender, no guarding and not rigid Back/Spine/Pelvis Back/spine/pelvis image: 1. tenderness on palpation. Negative for crepitus, ecchymosis, or rash Skin General skin exam: no rashes or lesions noted, elasticity normal and turgor normal Neuro General: oriented to person, oriented to place, oriented to time, patient oriented x3, gait normal, tone normal, moves all extremities, Normal light touch and pain sensation, no meningeal signs, no focal motor deficits, CN's II-XI intact bilaterally and normal sensation to monofilament Extrem General: Yes normal to inspection, Yes full ROM and Yes capillary refill normal Upper/lower leg/hip images: 1. positive for right calf tenderness on palpation without any pitting edema or erythema. Motor/neuro /vascular exam intact Psych Appearance: grossly normal, well kempt and not disheveled Medications Administered Discontinued Medications Generic Name Dose Route Start Last Admin Trade Name John PRN Reason Stop Dose Admin Albuterol Sulfate 2 puff 10/15/23 14:09 10/15/23 14:18 Albuterol Sulfate 90 Mcg 8 Gm Inhaler INHALE 10/15/23 14:10 2 puff ONCE ONE Administration Albuterol/Ipratropium 3 ml 10/15/23 12:11 10/15/23 12:15 Albuterol/Iprat 2.5/0.5mg 3 Ml Ampul.Neb INHALE 10/15/23 12:12 3 ml ONCE ONE Administration Medical Decision Making Medical Decision Making MDM Narrative: 38-year-old female history of asthma presents to ED for coughing, shortness of breath, low force, wheezing, right-sided lung pain pleurisy. physical exam shows wheezing and right calf pain on tenderness. Symptoms probably due to URI we will due to calf pain and right chest lung pain we will do ultrasound rule out lower extremity DVT. We will send D-dimer chest x-ray labs. 2:14pm: Right lower extremity ultrasound negative. Chest x-ray negative pneumonia. D-dimer negative. Perc score is 0. Heart score 0. EKG negative STEMI. Troponin BNP negative. Chest x-ray negative pneumonia. Diagnosed with asthma. Patient given pump will be discharged with albuterol pump prednisone, azithromycin, and albuterol liquid. patient explained worrisome signs and informed to return to the ED if she has Differential Diagnosis Differential Diagnoses: The differential diagnosis associated with the presentation includes ( asthma, bronchitis, URI, COVID, flu, PE, DVT, strep) Admission/Observation Consideration of admission/observation: Escalation of care including admission/observation considered Lab Data MDM Lab Attestation statement: I reviewed the patient's lab results. 10/15/23 11:39 10/15/23 11:39 Labs: Lab Results 10/15/23 10/15/23 10/15/23 Range/Units 10:21 11:39 13:54 WBC 6.8 (4.8-10.8) X10*3/uL RBC 4.46 (4.20-5.50) X10*6/uL Hgb 13.7 (12.0-16.0) g/dl Hct 39.5 (37.0-47.0) % MCV 88.6 (80.0-98.0) fL MCH 30.7 (27.0-33.0) pg MCHC 34.7 (31.0-35.0) g/dl RDW 12.5 (11.0-16.0) % Plt Count 240 (160-400) X10*3/uL MPV 10.0 (9.4-12.3) fL Immature Gran % (Auto) 0.1 (0.0-0.4) % Neut % (Auto) 60.9 (45-73) % Lymph % (Auto) 24.7 (20-40) % Routt % (Auto) 9.8 (2-11) % Eos % (Auto) 4.1 H (0-4) % Baso % (Auto) 0.4 (0-2) % Lymph # (Auto) 1.7 (1.2-4.9) X10*3/uL Routt # (Auto) 0.7 (0.1-1.2) X10*3/uL Eos # (Auto) 0.3 (0.0-0.4) X10*3/uL Baso # (Auto) 0.0 (0.0-0.2) X10*3/uL Abs Immat Gran (auto) 0.01 (0.00-0.03) X10*3/uL Absolute Neuts (auto) 4.1 (2.0-8.3) x10*3/uL Absolute Nucleated RBC 0.000 (0.0-0.012) X10*3/uL Nucleated RBC % (auto) 0.0 (0.0-0.2) /100WBC PT 13.3 (11.1-13.3) SEC INR 1.1 (0.9-1.1) APTT 30.9 (26.0-36.8) SEC D-Dimer High Sensitivty < 150 NG/ML Sodium 136 (135-145) mmol/L Potassium 3.6 (3.3-5.1) mmol/L Chloride 110 H (96-108) mmol/L Carbon Dioxide 19 L (22-29) mmol/L Anion Gap 11 L (12-20) BUN 8 L (9-16) mg/dL Creatinine 0.61 (0.5-1.4) mg/dL Estim Creat Clear Calc 137.2 Estimated GFR > 60 Random Glucose 93 (60-115) mg/dL Calcium 8.9 (8.4-10.2) mg/dL Total Bilirubin 0.6 (0.0-1.0) mg/dL AST 18 (5-31) U/L ALT 15 (0-31) U/L Alkaline Phosphatase 70 (39-117) U/L Troponin I High Sens < 2.7 (<3.5-17.0) ng/L B-Natriuretic Peptide < 10 (<100) pg/mL Total Protein 7.7 (6.5-8.0) g/dL Albumin 4.5 (3.5-5.0) g/dL Beta HCG, Quant < 2 mIU/mL Urine Color Yellow Urine Appearance Clear Urine pH 7.0 (5.0-9.0) Ur Specific Reading 1.020 (1.005-1.025) Urine Protein Negative (Neg-Trace) mg/dL Urine Glucose (UA) Negative (Negative) mg/dL Urine Ketones Trace (Negative) mg/dL Urine Blood Negative (Negative) Urine Nitrite Negative (Negative) Ur Leukocyte Esterase Negative (Negative) Influenza Type A (PCR) NEGATIVE (Negative) Influenza Type B (PCR) NEGATIVE (Negative) RSV RNA Qual (PCR) NEGATIVE (Negative) SARS-CoV-2 RNA (RT-PCR) NEGATIVE (Negative) S. pyogenes GrpA RIMA Negative (Negative) ABG Data Attestation ABG: I personally reviewed and interpreted this ABG as follows: Independent Interpretation I performed an independent interpretation of an: EKG ( normal sinus rhythm. Negative STEMI), Plain X-Ray, Ultrasound and CT Scan Radiology Impression Discussion of test interpretation with radiology: I have reviewed the radiologist's reading. Independent Historian Clinical information obtained from an independent historian. History obtained from or confirmed by: Other ( patient) External Record Review External record reviewed: Other ( prior visit) Prescription Management I considered prescription management with: Antibiotic and Other ( albuterol prednisone) Discharge Plan Discharge Clinical Impression: Asthma, Upper respiratory infection Patient Disposition: Home, Self-Care Instructions: Asthma (ED), Upper Respiratory Infection (ED) Additional Instructions: recommend follow-up with primary care provider. Return to the ED immediately for any chest pain, shortness of breath, coughing up blood, weakness, leg swelling, calf pain, chest pain inspiration, inability tolerate solid food/ liquid, chest pain, drooling, or any other concerning symptoms. Prescriptions: New prednisone 20 mg tablet 40 mg PO DAILY 5 Days Qty: 10 0RF azithromycin 250 mg tablet See Rx Instructions .ROUTE .COMPLEX Qty: 6 0RF Rx Instructions: For 250 mg dose pack: take 500 mg today (day 1), then 250 mg for 4 days (days 2-5) benzonatate 200 mg capsule 200 mg PO TID 5 Days Qty: 15 0RF albuterol sulfate 2.5 mg /3 mL (0.083 %) solution for nebulization 2.5 mg inhalation Q4-6H PRN (Reason: shortness of breath or wheezing) Qty: 75 0RF albuterol sulfate 90 mcg/actuation HFA aerosol inhaler 2 puff inhalation Q4-6H PRN (Reason: shortness of breath or wheezing) Qty: 8.5 0RF No Action ibuprofen 600 mg tablet 600 mg PO Q8H PRN (Reason: pain) Qty: 6 0RF hydrocodone-acetaminophen 5-325 mg tablet 1 tab PO Q8H PRN (Reason: severe pain (scale score 7-10)) Qty: 5 0RF cephalexin 500 mg capsule 500 mg PO Q6H 10 Days Qty: 40 0RF doxycycline hyclate 100 mg tablet 100 mg PO BID 10 Days Qty: 20 0RF oxycodone 5 mg tablet 5 mg PO Q6H PRN (Reason: pain) Qty: 14 0RF ibuprofen 800 mg tablet 800 mg PO Q8H PRN (Reason: pain) Qty: 14 0RF acetaminophen [Tylenol Extra Strength] 500 mg tablet 1,000 mg PO QID PRN (Reason: fever or pain) Qty: 14 0RF naproxen 500 mg tablet 500 mg PO BID PRN (Reason: pain) 10 Days Qty: 20 0RF cyclobenzaprine 10 mg tablet 10 mg PO BEDTIME PRN (Reason: muscle spasm) Qty: 7 0RF lidocaine 5 % adhesive patch,medicated 1 patch topical DAILY PRN (Reason: pain) Qty: 15 0RF Rx Instructions: leave on most painful area for up to 12 hrs oxycodone 5 mg tablet 5 mg PO Q6H PRN (Reason: pain (scale score 7-10)) Qty: 8 0RF ibuprofen 600 mg tablet 600 mg PO Q8H PRN (Reason: pain) Qty: 30 0RF acetaminophen [Tylenol Arthritis Pain] 650 mg tablet extended release 650 mg PO Q8H PRN (Reason: pain) Qty: 30 0RF albuterol sulfate 90 mcg/actuation HFA aerosol inhaler 2 puff inhalation Q4-6H PRN (Reason: shortness of breath or wheezing) Qty: 6.7 0RF Stand Alone Forms: Work/School Release Interventions: ED Discharge Assessment Last Done: 10/15/23 14:27 Discharge Date/Time: 10/15/23 14:28 Print Language: Icelandic
[2023-10-15 11:47] LABS: MANUAL DIFF FLAG NO
[2023-10-15 11:49] LABS: Basophils Percent Auto 0.4 % (0-2); Eosinophils Absolute Auto 0.3 X10*3/uL (0.0-0.4); Eosinophils Percent Auto 4.1 % (0-4); Hematocrit 39.5 % (37.0-47.0); Hemoglobin 13.7 g/dl (12.0-16.0); Imm Gran Abs Auto 0.01 X10*3/uL (0.00-0.03); Imm Gran Pct Auto 0.1 % (0.0-0.4); Lymphocytes Absolute Auto 1.7 X10*3/uL (1.2-4.9); Lymphocytes Percent Auto 24.7 % (20-40); Mean Corpuscular HGB Conc 34.7 g/dl (31.0-35.0); Mean Corpuscular Hemoglobin 30.7 pg (27.0-33.0); Mean Corpuscular Volume 88.6 fL (80.0-98.0); Monocytes Absolute Auto 0.7 X10*3/uL (0.1-1.2); Monocytes Percent Auto 9.8 % (2-11); Neutrophils Absolute Auto 4.1 x10*3/uL (2.0-8.3); Neutrophils Percent Auto 60.9 % (45-73); Platelet Count 240 X10*3/uL (160-400); Red Blood Count 4.46 X10*6/uL (4.20-5.50); Red Cell Distribution Width 12.5 % (11.0-16.0); White Blood Count 6.8 X10*3/uL (4.8-10.8)
--- NOTE | 2023-10-15 11:55 | PC.NURSE ---
alert and oriented, respirations even and unlabored. IV established, labs obtained and sent. awaiting xray and ultrasound. call [place] within reach
[2023-10-15 11:56] LABS: INTERNATIONAL NORM RATIO 1.1 (0.9-1.1); Prothrombin Time 13.3 SEC (11.1-13.3)
[2023-10-15 11:59] LABS: D Dimer High Sensitivity < 150 NG/ML; Partial Thromboplastin Time 30.9 SEC (26.0-36.8)
[2023-10-15 12:03] LABS: IDNOW Serial# 08D9AD1C; Strep A Nucleic Acid Negative (Negative)
[2023-10-15 12:14] LABS: B Type Natriuretic Peptide < 10 pg/mL (<100)
[2023-10-15] MEDS: Albuterol/Iprat 2.5/0.5MG 3 ML AMPUL.NEB INHALE (12:15)
[2023-10-15 12:16] VITALS: PULSE 70; RESP 16; O2SAT 98
[2023-10-15 12:26] LABS: Troponin-I High Sensitivity < 2.7 ng/L (<3.5-17.0)
[2023-10-15 12:31] LABS: Alanine Aminotransferase 15 U/L (0-31); Albumin Level 4.5 g/dL (3.5-5.0); Alkaline Phosphatase 70 U/L (39-117); Anion Gap 11 (12-20); Aspartate Amino Transferase 18 U/L (5-31); Bilirubin Total 0.6 mg/dL (0.0-1.0); Blood Urea Nitrogen 8 mg/dL (9-16); Calcium 8.9 mg/dL (8.4-10.2); Carbon Dioxide 19 mmol/L (22-29); Chloride 110 mmol/L (96-108); Creatinine Clr Calc Pharmacy 137.2; Estimated Glomerular Filt Rate > 60; Glucose Random 93 mg/dL (60-115); HCG Quantitative < 2 mIU/mL; Potassium 3.6 mmol/L (3.3-5.1); Sodium 136 mmol/L (135-145); Total Protein 7.7 g/dL (6.5-8.0)
[2023-10-15 12:57] VITALS: BP 136/93; PULSE 80; RESP 20; TEMP 36.6; O2SAT 100
[2023-10-15 14:01] LABS: Appearance Urine Clear; Color Urine Yellow; Glucose Urine UA Negative (Negative); Leukocyte Esterase Urine Negative (Negative); Nitrite Urine Negative (Negative); Urine Blood Negative (Negative); Urine Ketones Trace mg/dL (Negative); Urine Protein Negative (Neg-Trace)
[2023-10-15 14:18] VITALS: PULSE 109; RESP 18; O2SAT 99
[2023-10-15] MEDS: Albuterol Sulfate 90 MCG 8 GM INHALER 2 PUFF INHALE (14:18)
[2023-10-15 14:27] VITALS: BP 136/93; PULSE 80; RESP 18; TEMP 36.6; O2SAT 100
== END 2023-10-15 14:28 | disposition home or self-care (01) ==
PROVIDERS: Physician Assistant; Emergency Provider Student in an Organized Health Care Education/Training Program; PCP Pediatrics
DX: J06.9 Acute upper respiratory infection, unspecified (principal); M79.661 Pain in right lower leg; J45.909 Unspecified asthma, uncomplicated
CPT/HCPCS: 0241U; 36415; 71046; 80053; 81003; 83880; 84484; 84702; 85025; 85379; 85610; 85730; 87651; 93005; 93971; 99284

== ENCOUNTER → 2023-10-15 11:23 | Outpatient (BNV) | payer OTHER, SELFPAY | PROVIDERS: Emergency Provider Student in an Organized Health Care Education/Training Program; PCP Pediatrics; Visit Provider Internal Medicine Cardiovascular Disease | DX: R09.1 Pleurisy (principal) | CPT/HCPCS: 93010 ==

== ENCOUNTER 2024-03-01 10:38 | Emergency (ER) | payer OTHER, SELFPAY ==
--- NOTE | ~2024-03-01 | XR_ITS ---
EXAMINATION: XR CHEST CLINICAL INFORMATION: Cough. COMPARISON: 10/15/2023 TECHNIQUE: Frontal view of the chest was obtained. FINDINGS: The lungs are well expanded. No focal consolidation. No pleural effusion. Cardiac silhouette is unchanged. XR/XR chest 1V IMPRESSION: No acute abnormality.
--- NOTE | 2024-03-01 10:39 | ECG_ITS ---
Test Reason : cp Blood Pressure : / mmHG Vent. Rate : 097 BPM Atrial Rate : 097 BPM P-R Int : 114 ms QRS Dur : 082 ms QT Int : 330 ms P-R-T Axes : -03 031 032 degrees QTc Int : 419 ms Normal sinus rhythm Normal ECG When compared with ECG of 15-OCT-2023 11:41, No significant change was found Referred By: Generic ED Physician Electronically Signed By:LALA CORBIN
[2024-03-01 10:47] VITALS: BP 137/81; PULSE 88; RESP 24; TEMP 36.2; O2SAT 99; BMI 34.6
--- NOTE | 2024-03-01 11:13 | ED_ITS ---
HPI - Asthma General Chief Complaint: Asthma Stated Complaint: cp, headache Time Seen by Provider: 03/01/24 11:03 Source: patient Mode of arrival: ambulatory Limitations: no limitations History of Present Illness ED Provider: Adriane Peña PA-C HPI Narrative: 38-year-old female with history of asthma, seasonal allergies presents to the ER for evaluation of worsening shortness of breath, productive cough, difficulty breathing for the last 2 weeks. She recently rescued multiple reptiles and chinchillas and thinks that taking care of them and their cages has exacerbated her allergies and asthma. She has been using her rescue inhaler with no improvement in her symptoms. She has been taking her allergy medications as well. She states she has intermittently bringing up some clear or yellow phlegm, sometimes her cough is dry. She denies any fevers or chills. No chest pain, abdominal pain, nausea, vomiting, diarrhea. MD complaint: asthma attack and shortness of breath Onset (ago): week(s) (2) Severity: worse than usual Context: allergen exposure and pet exposure Associated symptoms: productive cough and dry cough Asthma History: adult onset Treatments Prior to Arrival: inhaled bronchodilator Related Data Current Asthma Therapy: inhaled bronchodilator Previous Rx's ?Medication ?Instructions ?Recorded hydrocodone 5 mg-acetaminophen 325 1 tab PO Q8H PRN severe pain 11/13/21 mg tablet (scale score 7-10) #5 tabs ibuprofen 600 mg tablet 600 mg PO Q8H PRN pain #6 tabs 11/13/21 acetaminophen 650 mg 650 mg PO Q8H PRN pain #30 tabs 11/14/21 tablet,extended release (Tylenol Arthritis Pain) ibuprofen 600 mg tablet 600 mg PO Q8H PRN pain #30 tabs 11/14/21 oxycodone 5 mg tablet 5 mg PO Q6H PRN pain (scale score 11/14/21 7-10) #8 tabs acetaminophen 500 mg tablet 1,000 mg (2 x 500 mg) PO QID PRN 11/24/21 (Tylenol Extra Strength) fever or pain #14 tabs cephalexin 500 mg capsule 500 mg PO Q6H 10 days #40 caps 11/24/21 doxycycline hyclate 100 mg tablet 100 mg PO BID 10 days #20 tabs 11/24/21 ibuprofen 800 mg tablet 800 mg PO Q8H PRN pain #14 tabs 11/24/21 oxycodone 5 mg tablet 5 mg PO Q6H PRN pain #14 tabs 11/24/21 naproxen 500 mg tablet 500 mg PO BID PRN pain 10 days #20 03/06/22 tabs cyclobenzaprine 10 mg tablet 10 mg PO BEDTIME PRN muscle spasm 07/13/22 #7 tabs lidocaine 5 % topical patch 1 patch topical DAILY PRN pain #15 07/13/22 ea albuterol sulfate 90 mcg/actuation 2 puff inhalation Q4-6H PRN 07/13/23 aerosol inhaler shortness of breath or wheezing #6.7 grams albuterol sulfate 2.5 mg/3 mL 2.5 mg (3 mL) inhalation Q4-6H PRN 10/15/23 (0.083 %) solution for nebulization shortness of breath or wheezing #75 mL albuterol sulfate 90 mcg/actuation 2 puff inhalation Q4-6H PRN 10/15/23 aerosol inhaler shortness of breath or wheezing #8.5 grams azithromycin 250 mg tablet See Rx Instructions PO .COMPLEX #6 10/15/23 tabs benzonatate 200 mg capsule 200 mg PO TID 5 days #15 caps 10/15/23 prednisone 20 mg tablet 40 mg (2 x 20 mg) PO DAILY 5 days 10/15/23 #10 tabs albuterol sulfate 90 mcg/actuation 2 puff inhalation Q4-6H PRN 03/01/24 aerosol inhaler shortness of breath or wheezing #8.5 grams azithromycin 250 mg tablet See Rx Instructions PO .COMPLEX #6 03/01/24 (Zithromax Z-Oz) tabs prednisone 20 mg tablet 40 mg (2 x 20 mg) PO DAILY #10 tabs 03/01/24 Allergies Allergy/AdvReac Type Severity Reaction Status Date / Time amoxicillin [AMOXICILLIN] Allergy Unknown SWELLING Verified 03/01/24 10:48 latex [LATEX] Allergy Unknown SWELLING Verified 03/01/24 10:48 Review of Systems Review of Systems: Yes all other systems are reviewed and are negative PMFSH Past Medical History Medical History No known health problems Social History Social History Patient Tobacco Use Status: Never used Tobacco Use of substances other than those prescribed or required for medical reasons: No Advance Directives: No Advance Directives Information Provided: No Do you have a plan to hurt others: No Plan Patient : No Current occupational status: unemployed Current occupation: rt hand Physical Exam Vital Signs: Vital Signs: Last Vital Signs Temp 98.0 F 03/01/24 12:00 Pulse 67 03/01/24 12:00 Resp 19 03/01/24 12:00 BP 132/89 03/01/24 12:00 Pulse Ox 97 03/01/24 12:00 O2 Del Method Room Air 03/01/24 12:00 BMI result Body Mass Index 34.6 Appearance: Alert. Oriented X3. Mild resp distress w/ increased WOB Head: normocephalic, atraumatic. Eyes: Pupils equal, round and reactive to light. ENT: Pharynx normal. No tonsillar swelling or exudate. Neck: Normal inspection. Neck supple. CVS: Normal heart rate and rhythm. Pulses normal. Respiratory: Mild respiratory distress. Breath sounds diminished thoughout but without wheezing or rhonchi, bronchospastic with deep breaths Abdomen: Soft and nontender. +BS x4 Skin: Skin warm and dry. Normal skin color. Normal skin turgor. No rashes. Extremities: No lower extremity edema. No joint swelling. Neuro/psych: Oriented X 3. No motor deficit. No sensory deficit. CN II-XII intact. Normal speech and cognition. Medications Administered Discontinued Medications Generic Name Dose Route Start Last Admin Trade Name Freq PRN Reason Stop Dose Admin Albuterol/Ipratropium 3 ml 03/01/24 11:49 03/01/24 11:51 Albuterol/Iprat 2.5/0.5mg 3 Ml Ampul.Neb INHALE 03/01/24 11:50 3 ml ONCE ONE Administration Prednisone 40 mg 03/01/24 11:23 03/01/24 11:30 Prednisone 20 Mg Tablet PO 03/01/24 11:24 40 mg ONCE ONE Administration Medical Decision Making Medical Decision Making MDM Narrative: 38-year-old female presents to the ER for evaluation of productive cough, shortness of breath, wheezing despite using albuterol pump at home. She has new reptiles and chin chills at home that have been exacerbating her asthma and seasonal allergies. Arrival to the ER patient is in [id number] respiratory distress with audible wheezing. ED bronch protocol ordered along with PO prednisone. She was saturating well on RA. BP stable Chest x-ray was done which showed no focal infiltrate, effusion or pneumothorax. Viral studies and strep study was found to be negative. After DuoNeb was administered and steroids, patient reported significant improvement in her symptoms and felt much better. At this time she is stable for discharge home with ongoing prednisone, antibiotics, and p.r.n. albuterol. Encouraged follow- up with her PCP and Pulmonary. Return precautions were discussed. Stable for discharge home Differential Diagnosis Differential Diagnoses: The differential diagnosis associated with the presentation includes acute asthma exacerbation, strep, covid, flu, rsv, other viral syndrome, bronchitis, pneumonia, sinus infection, reactive airway disease Admission/Observation Consideration of admission/observation: Escalation of care including admission/observation considered Lab Data MDM Lab Attestation statement: I reviewed the patient's lab results. Labs: Lab Results 03/01/24 Range/Units 10:47 Influenza Type A (PCR) NEGATIVE (Negative) Influenza Type B (PCR) NEGATIVE (Negative) RSV RNA Qual (PCR) NEGATIVE (Negative) SARS-CoV-2 RNA (RT-PCR) NEGATIVE (Negative) S. pyogenes GrpA RIMA Negative (Negative) Independent Interpretation I performed an independent interpretation of an: Plain X-Ray Interpretation: No focal infiltrate or effusion, agree with radiology read Radiology Impression Discussion of test interpretation with radiology: I have reviewed the radiologist's reading. Radiologist Impression: EXAMINATION: XR CHEST CLINICAL INFORMATION: Cough. COMPARISON: 10/15/2023 TECHNIQUE: Frontal view of the chest was obtained. FINDINGS: The lungs are well expanded. No focal consolidation. No pleural effusion. Cardiac silhouette is unchanged. XR/XR chest 1V IMPRESSION: No acute abnormality. External Record Review External record reviewed: Prior outpatient labs and Prior outpatient radiology Prescription Management I considered prescription management with: Antibiotic Chronic Conditions Patient?s care impacted by: Other (asthma) Critical Care Time Critical Care Time Critical Care Time: No Discharge Plan Discharge Clinical Impression: Asthma with acute exacerbation Qualifiers: Asthma severity: unspecified severity Asthma persistence: unspecified Qualified Code(s): J45.901 - Unspecified asthma with (acute) exacerbation Patient Disposition: Home, Self-Care Instructions: Asthma (ED) Additional Instructions: Your chest x-ray was normal. You tested negative for COVID, Flu, RSV and Strep throat. Take the prescribed prednisone as directed - take 1st dose tomorrow, as you were given 1 dose today in the ER. Use the prescribed albuterol inhaler as needed for shortness of breath and wheezing Take the prescribed antibiotics as directed, complete the entire course and do not miss any doses Recommend following up with pulmonology. Call for an appointment. Name and number below. Follow-up with your primary care doctor. If you develop new or worsening symptoms call 911 or come back to the ER for further evaluation. Prescriptions: New prednisone 20 mg tablet 40 mg PO DAILY Qty: 10 0RF albuterol sulfate 90 mcg/actuation HFA aerosol inhaler 2 puff inhalation Q4-6H PRN (Reason: shortness of breath or wheezing) Qty: 8.5 0RF azithromycin [Zithromax Z-Oz] 250 mg tablet See Rx Instructions .ROUTE .COMPLEX Qty: 6 0RF Rx Instructions: take 500 mg today (day 1), then 250 mg for 4 days (days 2-5) No Action ibuprofen 600 mg tablet 600 mg PO Q8H PRN (Reason: pain) Qty: 6 0RF hydrocodone-acetaminophen 5-325 mg tablet 1 tab PO Q8H PRN (Reason: severe pain (scale score 7-10)) Qty: 5 0RF cephalexin 500 mg capsule 500 mg PO Q6H 10 Days Qty: 40 0RF doxycycline hyclate 100 mg tablet 100 mg PO BID 10 Days Qty: 20 0RF oxycodone 5 mg tablet 5 mg PO Q6H PRN (Reason: pain) Qty: 14 0RF ibuprofen 800 mg tablet 800 mg PO Q8H PRN (Reason: pain) Qty: 14 0RF acetaminophen [Tylenol Extra Strength] 500 mg tablet 1,000 mg PO QID PRN (Reason: fever or pain) Qty: 14 0RF naproxen 500 mg tablet 500 mg PO BID PRN (Reason: pain) 10 Days Qty: 20 0RF cyclobenzaprine 10 mg tablet 10 mg PO BEDTIME PRN (Reason: muscle spasm) Qty: 7 0RF lidocaine 5 % adhesive patch,medicated 1 patch topical DAILY PRN (Reason: pain) Qty: 15 0RF Rx Instructions: leave on most painful area for up to 12 hrs oxycodone 5 mg tablet 5 mg PO Q6H PRN (Reason: pain (scale score 7-10)) Qty: 8 0RF ibuprofen 600 mg tablet 600 mg PO Q8H PRN (Reason: pain) Qty: 30 0RF acetaminophen [Tylenol Arthritis Pain] 650 mg tablet extended release 650 mg PO Q8H PRN (Reason: pain) Qty: 30 0RF albuterol sulfate 90 mcg/actuation HFA aerosol inhaler 2 puff inhalation Q4-6H PRN (Reason: shortness of breath or wheezing) Qty: 6.7 0RF prednisone 20 mg tablet 40 mg PO DAILY 5 Days Qty: 10 0RF azithromycin 250 mg tablet See Rx Instructions .ROUTE .COMPLEX Qty: 6 0RF Rx Instructions: For 250 mg dose pack: take 500 mg today (day 1), then 250 mg for 4 days (days 2-5) benzonatate 200 mg capsule 200 mg PO TID 5 Days Qty: 15 0RF albuterol sulfate 2.5 mg /3 mL (0.083 %) solution for nebulization 2.5 mg inhalation Q4-6H PRN (Reason: shortness of breath or wheezing) Qty: 75 0RF albuterol sulfate 90 mcg/actuation HFA aerosol inhaler 2 puff inhalation Q4-6H PRN (Reason: shortness of breath or wheezing) Qty: 8.5 0RF Referrals: [facility] [place] [facility] [Provider Group] (asthma) Stand Alone Forms: Work/School Release Print Language: Bengali
[2024-03-01 11:17] LABS: IDNOW Serial# 08D9AD1C; Strep A Nucleic Acid Negative (Negative)
[2024-03-01 11:29] LABS: Influenza A PCR NEGATIVE (Negative); Influenza B PCR NEGATIVE (Negative); Resp Syncy Virus RNA Qual PCR NEGATIVE (Negative); SARS COV2 PCR INHOUSE NEGATIVE (Negative)
[2024-03-01] MEDS: predniSONE 20 MG TABLET 40 MG PO (11:30)
[2024-03-01 11:51] VITALS: PULSE 65; RESP 16; O2SAT 96
[2024-03-01] MEDS: Albuterol/Iprat 2.5/0.5MG 3 ML AMPUL.NEB INHALE (11:51)
[2024-03-01 12:00] VITALS: BP 132/89; PULSE 67; RESP 19; TEMP 36.7; O2SAT 97
== END 2024-03-01 13:00 | disposition home or self-care (01) ==
PROVIDERS: Emergency Provider Emergency Medicine
DX: J45.901 Unspecified asthma with (acute) exacerbation (principal); R06.02 Shortness of breath; Z03.818 Encounter for observation for suspected exposure to other biological agents ruled out; R05.9 Cough, unspecified; Z79.899 Other long term (current) drug therapy
CPT/HCPCS: 0241U; 71045; 87651; 93005; 94640; 99284

== ENCOUNTER 2024-03-08 10:59 | Outpatient (AMB) | payer OTHER, SELFPAY ==
--- NOTE | 2024-03-08 11:04 | A.OFFVIS_ITS ---
Vital Signs 03/08/24 11:07 Height 5 ft 5 in Weight 210 lb BMI 34.9 BP 120/68 Blood Pressure Location Rt brachial Position Sitting Pulse 69 Pulse Source Pulse Oximeter Pulse Oximetry (%) 99 Oxygen Delivery Method Room Air Intake Visit Reasons: asthma/ ED follow up ([facility]) Allergies amoxicillin [AMOXICILLIN] Allergy (Unknown, Verified 03/08/24 11:09) SWELLING latex [LATEX] Allergy (Unknown, Verified 03/08/24 11:09) SWELLING HPI HPI asthma/ ED follow up ([facility]): Details: Lida is a pleasant 38 year old female, never smoker, with underlying asthma. She was referred by [facility] ED for pulmonary evaluation after second asthma exacerbation this year. She was seen in September 2023 and recently on 03/01/24, discharged with a zpak and prednisone. She reports worsening asthma control after honorio COVID 19 in April 2023. She is currently prescribed albuterol MDI, which she uses multiple times per day. She was prescribed albuterol for nebulized therapy in the past but never received a nebulizer machine. She does not have a daily inhaler, however was prescribed Flovent in the past with suboptimal effect. She continues to report dyspnea, chest tightness, wheezing and dry cough. She reports asthma diagnosed as an adult, never requiring intubation. She reports as a child she had pnuemonia and bronchitis multiple times per year and this has persisted, never evaluated for any immunodeficiencies. She reports multiple environmental allergies, no recent allergy testing. Over the last few months she also reports developing widespread hives to various exposures. She denies prior allergy evaluation. She also recently rescued two chinchillas and various reptiles in December as well as having two dogs at home. She is using a daily antihistamine with minimal effect. She reports mother with severe asthma. She denies any occupational exposures, however has had issues in the past with prior exposures at work and home possibly related to mold/chemicals. ON LICENSE OF [facility] Medical History No known health problems Social History Patient Tobacco Use Status: Never used Tobacco Current occupational status: unemployed Current occupation: rt hand Review of Systems Const Denies chills, Denies excessive sweating, Denies fever(s), Denies headache(s) and Denies night sweats Eyes Denies dry eyes and Denies irritation ENT Reports Normal hearing present, Denies headache(s) and Denies sore throat Card Denies chest pain, Denies chest pain at rest, Denies chest pain with activity, Denies claudication, Denies leg edema, Denies orthopnea and Denies paroxysmal nocturnal dyspnea Resp Denies chest congestion, Denies pain on inspiration, Denies pain with cough and Denies stridor Musc Denies myalgias Neuro Reports Normal hearing present and Denies headache(s) Endo Denies excessive sweating Casey/Lymph Denies lymphadenopathy Aller/Immun Denies seasonal rhinorrhea Physical Exam Const General: cooperative, healthy appearing, comfortable, no acute distress, well developed and alert Nutritional Appearance: obese Orientation/consciousness: patient oriented x3 Limitations: no limitations HEENT Head: Yes normal to inspection, Yes normocephalic and Yes atraumatic Ears: hearing grossly normal bilaterally and external ears normal Eyes General: appearance normal, both eyes and all related structures Eyelids: Yes eyelids normal Sclerae: sclerae normal EOM: EOMs intact bilaterally Neck Neck: Yes normal visual inspection and Yes no lymphadenopathy Lymphatic: no lymphadenopathy noted Chest Chest palpation & inspection: normal inspection of the chest Resp Effort & Inspection: normal respiratory effort, able to speak in complete sentences, no audible wheezes, no cough, no stridor, not tachypneic, no tripod positioning and no use of accessory muscles Auscultation: clear to auscultation bilaterally Cardio Jugular venous distension: no JVD Rate: regular rate Rhythm: regular rhythm Skin Other: warm, dry General skin exam: no rashes or lesions noted Neuro General: patient oriented x3 Cranial nerves: Yes Normal hearing present Cognition (Neuro): normal cognition Gait exam (Neuro): Normal gait present Extrem General: Yes normal to inspection, Yes capillary refill normal, Yes no clubbing, cyanosis or edema and Yes no pedal edema Psych Appearance: grossly normal and well kempt Speech and movement: Normal speech and movement present and Clear speech present Affect: normal affect Attitude: cooperative Thought process: Normal thought process present Thought content: Normal thought content present Insight: Good insight present (Psych) Judgement: Good judgement present (Psych) Results Reviewed Results Reviewed: [address] [address] XRay Report Signed Patient: Lida Carmichael MR#: [id number] : 1985 Acct:[id number] Age/Sex: 38 / F ADM Date: 03/01/24 Loc: HO.ED Attending Dr: Ordering Physician: Lelsy Walker DO Date of Service: 03/01/24 Procedure(s): XR chest 1V Accession Number(s): [id number] cc: Lesly Walker DO; Physician,Unknown ~ EXAMINATION: XR CHEST CLINICAL INFORMATION: Cough. COMPARISON: 10/15/2023 TECHNIQUE: Frontal view of the chest was obtained. FINDINGS: The lungs are well expanded. No focal consolidation. No pleural effusion. Cardiac silhouette is unchanged. XR/XR chest 1V IMPRESSION: No acute abnormality. Dictated By: Lyn Sprague MD Signed By: <Electronically signed by Lyn Sprague MD in OV> 03/01/24 1216 DD/ 1056 TD/TT: Product Safety Officer: Assessment & Plan Assessment & Plan (1) Asthma: Code(s): J45.909 - Unspecified asthma, uncomplicated Category: Medical (2) Environmental allergies: Code(s): Z91.09 - Other allergy status, other than to drugs and biological substances Category: Medical (3) Recurrent infections: Code(s): B99.9 - Unspecified infectious disease Category: Medical Plan [place] symptoms are likely related to underlying asthma, with possible allergic component. Will send for PFT and RAST to evaluate. She is requesting the PFT order to be sent to [facility]. Will start patient on Breo, as suboptimal response to Flovent. Discussed importance of good oral hygiene to prevent thrush. Patient also reported recurrent infections, will assess for immunodeficiencies. Will also enter referral for allergy evaluation given recurrent hives to various exposures. All questions were answered and patient is in agreement of plan. Will follow up to review results and effectiveness of inhaler, or sooner if needed. Orders: Orders Resp Allergy Profile Region I Today Z91.09 - Other allergy status, other than to drugs and biological substances Immunoglobulin E Today Z91.09 - Other allergy status, other than to drugs and biological substances Complete Blood Count Auto Diff Today Z91.09 - Other allergy status, other than to drugs and biological substances Immunoglobulins,IgG IgA IgM Today B99.9 - Unspecified infectious disease PFT pulmonary function test Today J45.909 - Unspecified asthma, uncomplicated Referrals Allergy & Immunology Referral L50.9 - Urticaria, unspecified Medications: New fluticasone furoate-vilanterol 100-25 mcg/dose (Breo Ellipta) 1 inh inhalation DAILY 60 ea 3RF albuterol sulfate 2.5 mg (3 mL) inhalation Q4-6H PRN 90 mL 0RF shortness of breath or wheezing Coding Level of Care Code New Pt Level 4 (26024) Diagnoses Asthma J45.909 Environmental allergies Z91.09 Recurrent infections B99.9
[2024-03-08 11:07] VITALS: BP 120/68; PULSE 69; O2SAT 99; BMI 34.9
== END 2024-03-08 11:52 | disposition home or self-care (01) ==
PROVIDERS: Visit Provider Nurse Practitioner Family
DX: J45.909 Unspecified asthma, uncomplicated (principal); Z91.09 Other allergy status, other than to drugs and biological substances; B99.9 Unspecified infectious disease
CPT/HCPCS: 99204

== ENCOUNTER → 2024-03-08 10:59 | Outpatient (BNVA) | payer OTHER, SELFPAY | PROVIDERS: Visit Provider Nurse Practitioner Family | DX: J45.909 Unspecified asthma, uncomplicated (principal); Z91.09 Other allergy status, other than to drugs and biological substances | CPT/HCPCS: 99202 ==

== ENCOUNTER 2025-04-23 08:55 | Emergency (ER) | payer OTHER, SELFPAY ==
--- NOTE | ~2025-04-23 | XR_ITS ---
EXAMINATION: XR CHEST CLINICAL INFORMATION: productive cough x 1 week COMPARISON: 03/01/2024, 10/15/2023. TECHNIQUE: 2 views of the chest were obtained. FINDINGS: The cardiac, hilar, and mediastinal contours are normal. The lungs are clear bilaterally. There is no pneumothorax or pleural effusion. There is no focal osseous or soft tissue abnormality. XR/XR chest 2V IMPRESSION: No active pulmonary disease. Electronically signed by: Rusty John MD 04/23/2025 10:05 AM EDT
[2025-04-23 09:17] VITALS: BP 125/80; PULSE 69; RESP 20; TEMP 36.7; O2SAT 99; BMI 32.2
[2025-04-23 09:55] LABS: COVID-19 Test Negative (Negative); IDNOW Serial# 55D5AD1C; IDNOW Serial# 58CA691E; Influenza B2 Negative (Negative)
[2025-04-23 10:00] VITALS: BP 120/76; PULSE 66; RESP 20; TEMP 36.6; O2SAT 99
[2025-04-23 10:40] VITALS: BP 130/96; PULSE 64; RESP 20; TEMP 36.6; O2SAT 100
[2025-04-23 10:42] VITALS: BP 130/96; PULSE 59; RESP 20; TEMP 36.6; O2SAT 100; BMI 32.7
--- NOTE | 2025-04-23 10:50 | ED_ITS ---
HPI - SOB/Dyspnea General Chief Complaint: Dyspnea Stated Complaint: SOB, ran out of asthma meds Time Seen by Provider: 04/23/25 10:15 Source: patient Mode of arrival: ambulatory Limitations: no limitations History of Present Illness ED Provider: HPI Narrative: 39-year-old woman, nonsmoker presenting with shortness of breath for the past 3 weeks, states this is very typical for her during this season, she does have history of asthma, for the past 1 week she has had green sputum production, other nonspecific symptoms, but no chest pain, no history of PE or any PE risk factors elicited such as recent surgeries, prolonged travels. She states her ran out of her albuterol inhaler. No fevers or chills reported Related Data Previous Rx's ?Medication ?Instructions ?Recorded albuterol sulfate 2.5 mg/3 mL 2.5 mg (3 mL) inhalation Q4-6H PRN 10/15/23 (0.083 %) solution for nebulization shortness of breat h or wheezing #75 mL albuterol sulfate 90 mcg/actuation 2 puff inhalation Q 4-6H PRN 03/01/24 aerosol inhaler shortness of breath or wheez ing #8.5 grams albuterol sulfate 2.5 mg/3 mL 2.5 mg (3 mL) inhalation Q4-6H PRN 03/08/24 (0.083 %) solution for nebulization shortness of breat h or wheezing #90 mL fluticasone furoate 100 1 inh inhalation DAILY #60 e a 03/08/24 mcg-vilanterol 25 mcg/dose inhalation powder (Breo Ellipta) albuterol sulfate 90 mcg/actuation 2 puff inhalation Q ID PRN 04/23/25 aerosol inhaler (Ventolin HFA) shortness of breath or wheezing #6.7 grams fluticasone furoate 100 1 inh inhalation DAILY 30 da ys #60 04/23/25 mcg-vilanterol 25 mcg/dose ea inhalation powder (Breo Ellipta) prednisone 20 mg tablet 40 mg (2 x 20 mg) PO DAILY 5 days 04/23/25 #10 tabs Allergies Allergy/AdvReac Type Severity Reaction Status Date / Time amoxicillin (AMOXICILLIN) Allergy Unknown SWELLING Verified 04/23/25 10:45 latex (LATEX) Allergy Unknown SWELLING Verified 04/23/25 10:45 Review of Systems Constitutional: Constitutional: Reports as per HPI [facility] Past Medical History Medical History No known health problems Social History Social History Patient Tobacco Use Status: Never used Tobacco Smoked in Last 30 Days: No Use of substances other than those prescribed or required for medical reasons: No Advance Directives: No Advance Directives Information Provided: Yes Patient : No Current occupational status: unemployed Current occupation: rt hand Physical Exam Vital Signs: Vital Signs: Last Vital Signs Temp 97.8 F 04/23/25 10:42 Pulse 59 04/23/25 10:42 Resp 20 04/23/25 10:42 BP 130/96 H 04/23/25 10:42 Pulse Ox 100 04/23/25 10:42 O2 Del Method Room Air 04/23/25 10:42 BMI result Body Mass Index 32.7 Medical Decision Making Medical Decision Making [facility] Narrative: 10:55 AM 04/23/2025 (Dr. Steve Wade): Overall well-appearing, minimal wheezing, PERC negative, no PE risk factors elicited, chest x-ray to evaluate for any consolidations, pneumonia pneumothorax, unlikely that this is due to CHF, we will initiate management anticipating discharge Differential Diagnosis Differential Diagnoses: The differential diagnosis associated with the presentation includes (CHF, COPD exacerbation, pneumonia, pneumothorax, ACS, PE,) Admission/Observation Consideration of admission/observation: Escalation of care including admission/observation considered Lab Data [facility] Lab Attestation statement: I reviewed the patient's lab results. Labs: Lab Results 04/23/25 Range/Units 09:30 COVID-19 (JESSICA) Negative (Negative) COVID-19 Clin Com See Note Influenza Type A (RIMA) Negative (Negative) Influenza Type B (RIMA) Negative (Negative) Influenza A & B Note See Note Independent Interpretation I performed an independent interpretation of an: Plain X-Ray (My independent chest xray interpretation: Lungs: Lungs are clear bilaterally without evidence of focal consolidation, pleural effusion, or pneumothorax. Cardiac silhouette is unremarkable, no obvious mediastinal widening, no obvious bony abnormalities such as fractures. Impression: Normal chest X-r) Radiology Impression Discussion of test interpretation with radiology: I have reviewed the radiologist's reading. (No acute disease) Prescription Management I considered prescription management with: Antibiotic Chronic Conditions Patient?s care impacted by: Other (Asthma) Discharge Plan Discharge Clinical Impression: Asthma exacerbation Instructions: Asthma (ED) Additional Instructions: Please use steroid inhaler daily, prednisone starting tomorrow, and then albuterol 2 puffs every 4 hours needed for wheezing You were viral swab is negative chest x-ray unremarkable, worsening issues concerns come back to the ER otherwise follow up with the PCP Prescriptions: New fluticasone furoate-vilanterol [Breo Ellipta] 100-25 mcg/dose blister with device 1 inh inhalation DAILY 30 Days Qty: 60 0RF albuterol sulfate [Ventolin HFA] 90 mcg/actuation HFA aerosol inhaler 2 puff inhalation QID PRN (Reason: shortness of breath or wheezing) Qty: 6.7 0RF prednisone 20 mg tablet 40 mg PO DAILY 5 Days Qty: 10 0RF No Action albuterol sulfate 2.5 mg /3 mL (0.083 %) solution for nebulization 2.5 mg inhalation Q4-6H PRN (Reason: shortness of breath or wheezing) Qty: 75 0RF albuterol sulfate 90 mcg/actuation HFA aerosol inhaler 2 puff inhalation Q4-6H PRN (Reason: shortness of breath or wheezing) Qty: 8.5 0RF fluticasone furoate-vilanterol [Breo Ellipta] 100-25 mcg/dose blister with device 1 inh inhalation DAILY Qty: 60 3RF albuterol sulfate 2.5 mg /3 mL (0.083 %) solution for nebulization 2.5 mg inhalation Q4-6H PRN (Reason: shortness of breath or wheezing) Qty: 90 0RF Print Language: Albanian
[2025-04-23] MEDS: Albuterol Sulfate 90 MCG 8 GM INHALER 2 PUFF INHALE (11:05)
[2025-04-23 11:10] VITALS: PULSE 68; RESP 16; O2SAT 100
[2025-04-23 15:27] VITALS: BP 120/77; PULSE 68; RESP 16; TEMP 36.5
== END 2025-04-23 11:45 | disposition home or self-care (01) ==
PROVIDERS: Emergency Provider Emergency Medicine
DX: J45.901 Unspecified asthma with (acute) exacerbation (principal); Z79.899 Other long term (current) drug therapy
CPT/HCPCS: 71046; 87502; 87635; 94640; 99284

== ENCOUNTER → 2025-04-23 09:22 | Outpatient (BNV) | payer OTHER, SELFPAY | PROVIDERS: Emergency Provider Emergency Medicine; Visit Provider Radiology Diagnostic Radiology | DX: R05.9 Cough, unspecified (principal) | CPT/HCPCS: 71046 ==